=== PATIENT | female | born 1950 | race Two or more races ===

== ENCOUNTER → 2017-08-24 | Outpatient (CLI) | payer OTHER ==
[~2017-08-24] MED LIST: GLIPIZIDE10 MG; TUSSEX COUGH S118 ML
== END | disposition home or self-care (01) ==
LOC: NUCLEAR 10:22
DX: I10 Essential (primary) hypertension (principal); R07.89 Other chest pain; J44.9 Chronic obstructive pulmonary disease, unspecified; E11.9 Type 2 diabetes mellitus without complications; I52 Other heart disorders in diseases classified elsewhere

== ENCOUNTER 2019-07-28 09:11 | Outpatient (CLI) | payer OTHER | END 2019-07-28 09:13 | disposition home or self-care (01) | LOC: SONOGRAMA 09:11 → MAMO-SONO 09:45 | DX: M12.812 Other specific arthropathies, not elsewhere classified, left shoulder (principal); M12.811 Other specific arthropathies, not elsewhere classified, right shoulder ==

== ENCOUNTER → 2019-08-09 06:59 | Outpatient (CLI) | payer OTHER | END | disposition home or self-care (01) | LOC: LAB 06:59 | DX: D68.8 Other specified coagulation defects (principal); N39.0 Urinary tract infection, site not specified; E78.2 Mixed hyperlipidemia; R07.89 Other chest pain; I10 Essential (primary) hypertension ==

== ENCOUNTER 2020-12-14 10:13 | Emergency (ER) | payer OTHER ==
[~2020-12-14] VITALS: Ht 149.9 cm; Wt 75.7 kg
[2020-12-14] MEDS ORDERED: LANTUS SOL100 UNIT/1 SUBCUTANEO (10:38)
[2020-12-14] MEDS ORDERED: SYNTHROID200 MCG PO (10:38)
[2020-12-14] MEDS ORDERED: COZAAR25 MG PO (10:38)
[2020-12-14] MEDS ORDERED: [UNRECOGNIZED DRUG - OTHER] (10:39)
[2020-12-14] MEDS ORDERED: JANUMET 50-1,01 EACH PO (10:40)
== END 2020-12-14 18:09 | disposition home or self-care (01) ==
LOC: ER 10:13
DX: K57.32 Diverticulitis of large intestine without perforation or abscess without bleeding (principal); R10.32 Left lower quadrant pain; J44.9 Chronic obstructive pulmonary disease, unspecified; E11.9 Type 2 diabetes mellitus without complications; I10 Essential (primary) hypertension; Z79.4 Long term (current) use of insulin

== ENCOUNTER 2021-06-17 08:54 | Inpatient (IN) | payer OTHER ==
[~2021-06-17] VITALS: Ht 149.9 cm; Wt 86.2 kg
[~2021-06-17 08:54] MED LIST changes: +COZAAR25 MG PO; +JANUMET 50-1,01 EACH PO; +LANTUS SOL100 UNIT/1 SUBCUTANEO; +SYNTHROID200 MCG PO; +[UNRECOGNIZED DRUG - OTHER]
--- NOTE | 2021-06-17 09:04 | NUR ---
SE RECIBE PACIENTE ALERTA Y ORIENTADA X3 QUIEN REFIERE TENER [place] AL EVACUAR DESDE EL SAMI DE RENITA COLOR ASIF INTENSO. REFIERE RENITA [facility] [facility] Y EN EL SAMI DE HOY TAMBIEN MELANY MAS PEQUENOS. SE REALIZA DEXTRO EL CUAL OBTIENE 117 MG/DL. SE REALIZAN S/V Y SE COLOCA PACIENTE EN OBSERVACION.
--- NOTE | 2021-06-17 10:05 | NUR ---
PTE ALERTA,ESTABLE Y ORIENTADO.SE EDUCA SOBRE EL TRATAMIENTO QUE SE LE REALZIARA EN EL HOSPITAL Y ESTA REFIERE ENTENDER.SE LE SAYWER MUESTRAS DE PAUL Y SE LE ADMINISTRA MEDICAMENTOS ANRDEW ORDEN MEDICA.
== END 2021-06-23 01:03 | disposition home or self-care (01) | DRG 393 ==
LOC: ER 08:54 → MEDJ 18:06
PROVIDERS: ADMIT Internal Medicine; ATTEND Internal Medicine
PROC: BW21Y0Z Computerized Tomography (CT Scan) of Abdomen and Pelvis using Other Contrast, Unenhanced and Enhanced (ICD-10-PCS; 2021-06-17)
PROC: 0DBN8ZX Excision of Sigmoid Colon, Via Natural or Artificial Opening Endoscopic, Diagnostic (ICD-10-PCS; principal; 2021-06-20)
DX: K55.039 Acute (reversible) ischemia of large intestine, extent unspecified (principal); K57.31 Diverticulosis of large intestine without perforation or abscess with bleeding; E13.9 Other specified diabetes mellitus without complications; Z79.4 Long term (current) use of insulin; I10 Essential (primary) hypertension; E03.8 Other specified hypothyroidism; Z20.822 Contact with and (suspected) exposure to COVID-19

== ENCOUNTER 2022-11-23 07:07 | Outpatient (CLI) | payer OTHER | END 2022-11-23 07:10 | disposition home or self-care (01) | LOC: NUCLEAR 07:07 | PROVIDERS: ATTEND Internal Medicine Cardiovascular Disease | DX: I25.10 Atherosclerotic heart disease of native coronary artery without angina pectoris (principal); I11.9 Hypertensive heart disease without heart failure; M85.89 Other specified disorders of bone density and structure, multiple sites; Z13.820 Encounter for screening for osteoporosis | CPT/HCPCS: 77080; 78452; 93017; A9500 ==

== ENCOUNTER 2023-06-07 09:41 | Outpatient (CLI) | payer OTHER | END 2023-06-07 09:42 | disposition home or self-care (01) | LOC: NUCLEAR 09:41 | PROVIDERS: ATTEND Internal Medicine Cardiovascular Disease | DX: I73.9 Peripheral vascular disease, unspecified (principal) ==

== ENCOUNTER 2023-06-08 08:34 | Outpatient (CLI) | payer OTHER | END 2023-06-08 09:27 | disposition home or self-care (01) | LOC: NUCLEAR 08:34 | PROVIDERS: ATTEND Internal Medicine Cardiovascular Disease | DX: I87.2 Venous insufficiency (chronic) (peripheral) (principal) ==

== ENCOUNTER 2024-02-15 08:36 | Outpatient (CLI) | payer OTHER | END 2024-02-15 08:47 | disposition home or self-care (01) | LOC: RAD 08:36 | PROVIDERS: ATTEND Internal Medicine Pulmonary Disease | DX: J45.41 Moderate persistent asthma with (acute) exacerbation (principal); J44.1 Chronic obstructive pulmonary disease with (acute) exacerbation ==